=== PATIENT | female | born 1970 | race Caucasian/White ===

== ENCOUNTER → 2018-06-14 | Outpatient (CLI) | payer OTHER ==
[2018-06-14 16:27] VITALS: BP 152/85; PULSE 70; RESP 18; TEMP 96.7; BMI 30.9
--- NOTE | 2018-06-14 17:11 | P.GSHP ---
History of Present Illness H&P Date: 06/14/18 Chief Complaint: Abnormal ultrasound left breast at 6:00, abnormal mammogram Annie is a 47-year-old white female who is status post bilateral diagnostic digital mammography on 05/21/2018. She has been seen in consultation for Dr. Briones and Dr. Nakul Mclaughlin. Following the mammogram it was noted that she had heterogeneously dense breast and she was recommended to undergo bilateral breast ultrasounds. These were performed on the same day and she was noted to have in the right breast cystic lesion which appeared to be stable and on the left breast a cystic lesion at 12:00 which had previously been noted was not identified. However at 6:00 in the left breast 7 mm hypoechoic nodule was noted. This was felt to have margins which was somewhat irregular and an ultrasound-guided core biopsy was recommended. The patient herself has not noted any lumps or masses in her breast. She has no complaints of any nipple discharge or skin changes. She has no recent history of any infection or trauma to the breast. Of importance is the fact that she has a half sister diagnosed with breast cancer at age 42 was noted to be BRCA1 positive. The patient states she is perimenopausal she does not take any hormones. The patient drinks approximately one cup of coffee a day, she does not drink soda. She does not smoke and is not exposed to secondhand smoke. She does eat dark chocolate occasionally. Family history: 1. Sr.: Breast cancer 42, BRCA1 positive 2. Maternal great aunt: Breast cancer 3. Maternal aunt: Lung cancer Hormonal history: Menarche: 13 Pregnancies: 2, first at 20, 2 children, breast fed: Yes Menopause: Perimenopausal, 1. Every 6 months Preoperative control pills: 1 year Hormones: No Past surgical history: 1. Herod teeth 2. 2 2. Tubal ligation Past medical history: 1. Arthritis Social history: Smoke: Stopped 2 years ago he smoked 1 pack per day for 32 years Alcohol: 5-6 glasses of wine once a week Drugs: Marijuana occasionally - Constitutional Constitutional: Reports sweats - EENT Eyes: denies blurred vision, denies pain Ears: deny: decreased hearing, tinnitus Ears, nose, mouth and throat: Denies headache, Denies sore throat - Breasts Breasts: bilateral: as per HPI - Cardiovascular Cardiovascular: Denies chest pain, Denies shortness of breath - Respiratory Comment: Former smoker Respiratory: Denies cough, Denies 7 - Gastrointestinal Gastrointestinal: Denies abdominal pain, Denies diarrhea, Denies nausea, Denies vomiting - Genitourinary (Female) Genitourinary: Denies dysuria, Denies hematuria - Menstruation Comment: Perimenopausal - Musculoskeletal Comment: Arthritis - Integumentary Integumentary: Denies pruritus, Denies rash - Neurological Neurological: Denies numbness, Denies weakness - Psychiatric Psychiatric: Reports depression - Endocrine Endocrine: Denies fatigue, Denies weight change - Hematologic/Lymphatic Comment: none - Allergic/Immunologic Allergic/Immunologic: Reports as per HPI Past Medical History Past Medical History: No Reported History History of Any Multi-Drug Resistant Organisms: None Reported Past Surgical History: Section Additional Past Surgical History / Comment(s): wisdom teeth removal Past Anesthesia/Blood Transfusion Reactions: No Reported Reaction Past Psychological History: Depression Smoking Status: Former smoker Past Alcohol Use History: Occasional Additional Past Alcohol Use History / Comment(s): Pt. states she drinks 1-2 x a week Past Drug Use History: None Reported Medications and Allergies Home Medications Medication Instructions Recorded Confirmed Type Black Cohosh 40 mg PO DAILY 06/10/18 06/14/18 History Cholecalciferol (Vitamin D3) 2,000 unit PO DAILY 06/10/18 06/14/18 History [Vitamin D3] L.acidoph,Paracasei, B.lactis 1 each PO DAILY 06/10/18 06/14/18 History [Probiotic] Allergies Allergy/AdvReac Type Severity Reaction Status Date / Time Sulfa (Sulfonamide Allergy Rash/Hives Verified 06/14/18 16:22 Antibiotics) Surgical - Exam Vital Signs Temp Pulse Resp BP Pulse Ox 96.7 F L 70 18 152/85 99 06/14/18 16:24 06/14/18 16:24 06/14/18 16:24 06/14/18 16:24 06/14/18 16:24 BMI 30.9 - General well developed, well nourished, no distress - Eyes normal ocular movement, no icteric - ENT no hearing loss, no congestion - Neck no masses, trachea midline - Respiratory normal respiratory effort, clear to auscultation - Cardiovascular Rhythm: regular Heart Sounds: normal: S1, S2 - Abdomen Abdomen: soft, non tender, no guarding, no rigid, no rebound - Integumentary normal turgor - Neurologic no disoriented, no combative - Musculoskeletal normal gait, normal posture - Psychiatric oriented to time, oriented to person, oriented to place, speech is normal, memory intact Breast examination: Right breast: Multi-positional exam a dominant masses or nodules of concern, fibrocystic changes Right axilla: No adenopathy of concern {: Multiple transitional exam fibrocystic changes no dominant masses or nodules of concern Left axilla: No adenopathy of concern Results Mammogram and ultrasound reports from April 2018 reviewed Assessment and Plan Assessment: Impression: 1. Bilateral abnormal mammogram 2. Bilateral ultrasound reviewed abnormal left breast ultrasound 3. Fibrocystic breast changes 4. Family history of breast cancer 5. Depression 6. Arthritis 7. Former nicotine dependence I discussed with the patient that she may have some fibrocystic changes in her breasts related to being perimenopausal and hormonal changes as well as her caffeine/theophylline intake. She will consider decreasing her caffeine/t heophylline intake. Additionally I discussed an ultrasound core biopsy and the risks and benefits of the procedure. She wishes to proceed and this is scheduled in the near future. Plan: 1. Ultrasound-guided left breast core biopsy 2. Medical management of medical conditions 3. Patient to follow up after ultrasound core biopsy Cc: Dr. Shin, Dr. Nakul Lynn
== END ==
LOC: WWCWWP 16:16
PROVIDERS: ATTEND Surgery
DX: Z53.9 Procedure and treatment not carried out, unspecified reason (principal)

== ENCOUNTER → 2018-06-19 | Day surgery (SDC) | payer OTHER ==
[2018-06-19 12:16] VITALS: RESP 16; BMI 30.9
[2018-06-19 13:47] VITALS: BP 126/83; PULSE 73; TEMP 98.3
--- NOTE | 2018-06-19 13:59 | USB ---
EXAMINATION TYPE: US biopsy breast VAD LT, Postbiopsy diagnostic mammo LT wo CAD DATE OF EXAM: 06/19/2018 CLINICAL HISTORY: 48-year-old female referred for ultrasound-guided core needle biopsy 6:00 left breast lesion, R92.8 ABN MAMMO. TECHNIQUE: Ultrasound guided core biopsy of the left breast. COMPARISON: Outside exams from 05/21/2018 and 10/16/2017 FINDINGS: The procedure of ultrasound guided core biopsy was explained to the patient. Benefits, alternatives, and risks were discussed. An informed consent was then obtained. The patient was placed in supine positioning for imaging and for the procedure. The overlying skin was prepped and draped in usual sterile fashion. Lidocaine buffered with bicarbonate was used as anesthetic into the skin and subcutaneous tissue up to area of concern in the 6:00 left breast. Under ultrasound guidance, a 13-gauge vacuum-assisted Mammotome Elite biopsy gun device was used to obtain 7 core samples. Following this, a coil clip was left at the site of biopsies. The patient tolerated the procedure well without any immediate complication. The patient was kept in the radiology department for short stay after the procedure and then discharged home in stable condition. Postprocedure mammogram shows coil clip 6:00 position peripherally in the left breast. There is no mammographic correlate to the ultrasound finding which was characterized as a 8 mm vague area of hypoechogenicity. IMPRESSION: Successful, uncomplicated ultrasound guided core biopsy of vague 8 mm area in the 6:00 left breast, full pathology results to follow. If benign results, six- month follow-up mammogram can be performed. 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 Duct ectasia, lobular dilation and apocrine metaplasia. Recommendation Surgical consult of the left breast. ([facility]) MANOLOD
== END | disposition home or self-care (01) ==
LOC: RADUSWWP 12:00
PROVIDERS: ATTEND Surgery
DX: N60.82 Other benign mammary dysplasias of left breast (principal); N60.42 Mammary duct ectasia of left breast; Z88.2 Allergy status to sulfonamides
CPT/HCPCS: 88305; 77065; 19083; A4648; J2001

== ENCOUNTER → 2018-06-27 | Outpatient (CLI) | payer OTHER ==
[2018-06-27 08:54] VITALS: BP 131/93; PULSE 64; RESP 16; TEMP 98; BMI 30.9
--- NOTE | 2018-06-27 09:29 | P.PN ---
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 Pathology was benign revealing pseud angiomatous stromal hyperplasia duct ectasia with lobular dilatation and apocrine metaplasia. Postprocedure the patient has some complaints of mild ecchymosis but otherwise no problems. 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 This will be reviewed with radiology. Objective - Vital Signs Vital signs: Vital Signs Temp 98.0 F 06/27/18 08:48 Pulse 64 06/27/18 08:48 Resp 16 06/27/18 08:48 BP 131/93 06/27/18 08:48 Pulse Ox 99 06/27/18 08:48 Intake & Output 06/26/18 06/27/18 06/27/18 18:59 06:59 18:59 Weight 81.647 kg - Constitutional General appearance: Present: average body habitus - EENT Eyes: Present: EOMI ENT: Present: hearing grossly normal - Neck Neck: Present: normal ROM - Respiratory Respiratory: bilateral: CTA - Cardiovascular Rhythm: regular Heart sounds: normal: S1, S2 - Integumentary Integumentary Comment(s): Mild ecchymosis left breast biopsy site - Musculoskeletal Musculoskeletal: Present: gait normal - Psychiatric Psychiatric: Present: A&O x's 3, appropriate affect Assessment and Plan Assessment: Impression: 1. Benign left breast ultrasound core biopsy 2. We will confirm that the area of concern was adequately sampled Plan: 1. Review results with radiology if the area of concern adequately sampled repeat left breast mammogram and ultrasound in 6 months time 2. Repeat physician exam in 6 months time The results were reviewed with radiology and the spot was felt to be adequately sampled. Cc: Dr. Mclaughlin
== END ==
LOC: WWCWWP 08:41
PROVIDERS: ATTEND Surgery
DX: Z53.9 Procedure and treatment not carried out, unspecified reason (principal)

== ENCOUNTER → 2018-12-20 | Outpatient (CLI) | payer OTHER ==
--- NOTE | 2018-12-20 10:06 | MM ---
Reason for exam: follow-up at short interval from prior study. Last mammogram was performed 6 months ago. History: Benign US biopsy breast VAD LT of the left breast, June 19, 2018. Physical Findings: Nurse Summary: 1cm nodule in the left breast at 5 o'clock (nurse kp). MG 3D Diag Mammo W/Cad LT CC, MLO, and XCCL view(s) were taken of the left breast. Prior study comparison: June 19, 2018, left breast MG diagnostic mammo LT wo CAD. The breast tissue is heterogeneously dense. This may lower the sensitivity of mammography. Previous mammotome biopsy in the left breast. No significant new findings when compared with previous films. These results were verbally communicated with the patient and result sheet given to the patient on 12/20/18. ASSESSMENT: Benign, BI-RAD 2 RECOMMENDATION: Routine screening mammogram of both breasts in 6 months. Back on schedule for May 2019. Manage on a clinical basis with regard to palpable abnormality.
--- NOTE | 2018-12-20 10:09 | USB ---
Reason for exam: follow-up at short interval from prior study. History: Benign US biopsy breast VAD LT of the left breast, June 19, 2018. US Breast LT Left complete breast ultrasound includes all four quadrants, the retroareolar region and axilla. Finding demonstrates a 5 x 2 x 7mm oval, cystic lesion at 3 o'clock and duct ectasia at the posterior nipple. These results were verbally communicated with the patient and result sheet given to the patient on 12/20/18. ASSESSMENT: Benign, BI-RAD 2 RECOMMENDATION: Routine screening mammogram of both breasts in 6 months. Back on schedule for May 2019. Manage patient on a clinical basis.
== END | disposition home or self-care (01) ==
LOC: RADMAMWWP 07:34
PROVIDERS: ATTEND Surgery
DX: R92.8 Other abnormal and inconclusive findings on diagnostic imaging of breast (principal)
CPT/HCPCS: 77065; 76641; G0279; 77061

== ENCOUNTER → 2018-12-26 | Outpatient (CLI) | payer OTHER ==
[2018-12-26 15:59] VITALS: BP 142/92; PULSE 69; RESP 18; TEMP 98.3; BMI 33.5
--- NOTE | 2018-12-26 16:48 | P.PN ---
Subjective Progress Note Date: 12/26/18 Annie is a 48 year old white female status [place] [id number]. Pathology was benign revealing pseudo-angiomatous stromal hyperplasia duct ectasia and lobular dilatation apocrine metaplasia. Postprocedure the patient is a complained of mild ecchymosis but that has resolv ed. The patient had a left breast mammogram and ultrasound performed on 92 [id number]. This was benign BIRADS 2 and routine screening of both breast in 6 months was recommended. Family history: 1. sister: Breast cancer 42, BRCA1 positive ( 1/2 sister seems to be passed via step-father they share a mother) 2. Maternal great aunt: Breast cancer 3. Maternal aunt: Lung cancer Hormonal history: Menarche: 13 Pregnancies: 2, first at 20, 2 children, breast fed: Yes Menopause: Perimenopausal, 1. Every 6 months Preoperative control pills: 1 year Hormones: No Past surgical history: 1. Ida teeth 2. 2 2. Tubal ligation Past medical history: 1. Arthritis Social history: Smoke: Stopped 2 years ago he smoked 1 pack per day for 32 years Alcohol: 5-6 glasses of wine once a week Drugs: Marijuana occasionally - Constitutional Constitutional: Reports sweats - EENT Eyes: denies blurred vision, denies pain Ears: deny: decreased hearing, tinnitus Ears, nose, mouth and throat: Denies headache, Denies sore throat - Breasts Breasts: bilateral: as per HPI - Cardiovascular Cardiovascular: Denies chest pain, Denies shortness of breath - Respiratory Comment: Former smoker Respiratory: Denies cough, Denies 7 - Gastrointestinal Gastrointestinal: Denies abdominal pain, Denies diarrhea, Denies nausea, Denies vomiting - Genitourinary (Female) Genitourinary: Denies dysuria, Denies hematuria - Menstruation Comment: Perimenopausal - Musculoskeletal Comment: Arthritis - Integumentary Integumentary: Denies pruritus, Denies rash - Neurological Neurological: Denies numbness, Denies weakness - Psychiatric Psychiatric: Reports depression - Endocrine Endocrine: Denies fatigue, Denies weight change - Hematologic/Lymphatic Comment: none - Allergic/Immunologic Allergic/Immunologic: Reports as per HPI Past Medical History Past Medical History: No Reported History History of Any Multi-Drug Resistant Organisms: None Reported Past Surgical History: Section Additional Past Surgical History / Comment(s): wisdom teeth removal Past Anesthesia/Blood Transfusion Reactions: No Reported Reaction Past Psychological History: Depression Smoking Status: Former smoker Past Alcohol Use History: Occasional Additional Past Alcohol Use History / Comment(s): Pt. states she drinks 1-2 x a week Past Drug Use History: None Reported Objective - Vital Signs Vital signs: Vital Signs Temp 98.3 F 12/26/18 15:56 Pulse 69 12/26/18 15:56 Resp 18 12/26/18 15:56 BP 142/92 12/26/18 15:56 Pulse Ox 98 12/26/18 15:56 Intake & Output 12/25/18 12/26/18 12/26/18 18:59 06:59 18:59 Weight 88.451 kg - Exam BMI 33.5 - Constitutional General appearance: Present: obese - EENT Eyes: Present: EOMI ENT: Present: hearing grossly normal - Neck Neck: Present: normal ROM - Respiratory Respiratory: bilateral: CTA - Cardiovascular Rhythm: regular Heart sounds: normal: S1, S2 - Integumentary Integumentary: Present: normal turgor - Musculoskeletal Musculoskeletal: Present: gait normal - Psychiatric Psychiatric: Present: A&O x's 3, appropriate affect, intact judgment & insight - Additional findings Additional findings: Left breast exam: Multiple positional exam fibrocystic changes no dominant masses or nodules of concern no ecchymosis no evidence of any infection Left axilla: No adenopathy of concern Breast examination was not repeated on today's exam Assessment and Plan Assessment: Impression: 1. Fibrocystic breast changes 2. Family history of cancer 3. Family history of breast cancer sister BRCA1 positive this is a half sister and seems to have been passed via paternal stepfathers 4. Consider genetic counseling 5. Arthritis Plan: 1. Bilateral mammogram in 6 months with physician exam at that time 2. Consider genetic counseling patient at this time is going to wait Cc: Dr. Briones, Dr. Nakul Mclaughlin
== END | disposition home or self-care (01) ==
LOC: WWCWWP 15:37
PROVIDERS: ATTEND Surgery
DX: Z53.9 Procedure and treatment not carried out, unspecified reason (principal)